=== PATIENT | female | born 1970 | race Caucasian/White ===

== ENCOUNTER 2016-05-12 17:15 | Emergency (ER) | payer OTHER | END 2016-05-12 19:04 | disposition left against medical advice (07) | LOC: ER 17:23 | DX: Z53.21 Procedure and treatment not carried out due to patient leaving prior to being seen by health care provider (principal) ==

== ENCOUNTER 2016-08-16 08:28 | Emergency (ER) | payer OTHER ==
[~2016-08-16] VITALS: Ht 175.3 cm; Wt 65.8 kg
--- NOTE | 2016-08-16 08:38 | NUR ---
PT CAME IN FOR R ARM ABCESS. 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 NOTED ANXIOUS. WILL MONITOR.
[2016-08-16] MEDS ORDERED: SULFAMETH/TRIMETH 800/160 MG 1 UDTAB TABLET PO ONE ×2 (08:49→09:00)
--- NOTE | 2016-08-16 08:54 | NUR ---
PT MEDICATED ORDERED.
[2016-08-16] MEDS ORDERED: LIDOCAINE 1%-EPI 1:100,000 20 ML VIAL TP ONE (09:00)
--- NOTE | 2016-08-16 09:01 | NUR ---
Patient discharged to home in stable condition. Written and verbal after care instructions given. Patient verbalizes understanding of instruction.
[2016-08-16 09:02] VITALS: BP 135/82
== END 2016-08-16 09:52 | disposition home or self-care (01) ==
LOC: EDUNIT# 08:28 → ER 08:32
DX: L02.413 Cutaneous abscess of right upper limb (principal); F19.129 Other psychoactive substance abuse with intoxication, unspecified; F41.9 Anxiety disorder, unspecified; F17.200 Nicotine dependence, unspecified, uncomplicated
CPT/HCPCS: 10061; 99284; A4606; A6402; A6403; A6407; Z7610

== ENCOUNTER 2017-03-30 00:16 | Emergency (ER) | payer OTHER ==
[~2017-03-30] VITALS: Ht 167.6 cm; Wt 54.0 kg
--- NOTE | 2017-03-30 00:38 | NUR ---
BB SELF; PT STATES "I THINK I HAVE PIN WORMS AND GENERALIZED RASH X 1.5 MONTHS" PT AOX3 RR EVEN AND UNLABORED. NO SOB NOTED. NAD NOTED. NO NVD AT THIS TIME. PT GOWNED AND PLACED ON MONITOR WAITING FOR MD GALDAMEZ.
--- NOTE | 2017-03-30 01:01 | NUR ---
DR. OCONNOR AT BEDSIDE FOR EVAL.
[2017-03-30] MEDS ORDERED: TDAP [DIPH/PERTUSSIS/TET] 0.5 ML VIAL IM ONE ×2 (01:13→01:30)
--- NOTE | 2017-03-30 01:21 | NUR ---
LAB AT BEDSIDE FOR BLOOD DRAW
[2017-03-30 01:28] LABS: BASOPHILS % (AUTO) 0.4 % (0.0-2.0); EOSINOPHILS # (AUTO) 0.1 /CMM (0.0-0.7); EOSINOPHILS % (AUTO) 1.8 % (0.0-6.0); HEMATOCRIT 36 % (33-45); HEMOGLOBIN 11.9 g/dL (11.5-14.8); LYMPHOCYTES # (AUTO) 2.2 /CMM (0.8-4.8); LYMPHOCYTES % (AUTO) 28.3 % (20.0-44.0); MEAN CORPUSCULAR HEMOGLOBIN 29 PG (26.0-33.0); MEAN CORPUSCULAR HGB CONC 33 g/dl (31.0-36.0); MEAN CORPUSCULAR VOLUME 87 fL (82-100); MONOCYTES # (AUTO) 0.6 /CMM (0.1-1.30); MONOCYTES % (AUTO) 7.2 % (2.0-12.0); NEUTROPHILS # (AUTO) 4.9 /CMM (1.8-8.9); NEUTROPHILS % (AUTO) 62.3 % (43.0-81.0); PLATELET COUNT (AUTO) 303 /CMM (150-450); RDW COEFFICIENT OF VARIATION 14.8 (11.5-15.0); RED BLOOD CELL COUNT(AUTO) 4.16 MIL/uL (4.0-5.2); WHITE BLOOD COUNT (AUTO) 7.9 K/uL (4.3-11.0)
[2017-03-30 01:45] LABS: CALCIUM, SERUM 8.6 mg/dL (8.5-10.1); CREATININE 0.9 mg/dL (0.6-1.3); POTASSIUM 3.4 mmol/L (3.5-5.1)
[2017-03-30] MEDS ORDERED: POTASSIUM CHLORIDE 20 MEQ TAB.PRT.SR PO ONE ×2 (02:00→02:05)
[2017-03-30] MEDS ORDERED: CEPHALEXIN MONOHYDRATE 500 MG CAPSULE PO ONE ×2 (02:00→02:05)
[2017-03-30] MEDS ORDERED: SULFAMETH/TRIMETH 800/160 MG 1 UDTAB TABLET PO ONE ×2 (02:00→02:12)
--- NOTE | 2017-03-30 02:10 | NUR ---
DR. OCONNOR AT BEDSIDE SPEAKING TO PT REGARDING RESULTS
--- NOTE | 2017-03-30 02:16 | NUR ---
Patient discharged to home in stable condition. Written and verbal after care instructions given. Patient verbalizes understanding of instruction. ambulatory with a steady gait
[2017-03-30 02:17] VITALS: BP 148/87
== END 2017-03-30 02:18 | disposition home or self-care (01) ==
LOC: ER 00:21
DX: L03.114 Cellulitis of left upper limb (principal); L03.113 Cellulitis of right upper limb; F41.9 Anxiety disorder, unspecified; F17.200 Nicotine dependence, unspecified, uncomplicated; Z23 Encounter for immunization
CPT/HCPCS: 36415; 80048; 85025; 90471; 90715; 99284; A4606; Z7610

== ENCOUNTER 2018-08-14 19:38 | Emergency (ER) | payer OTHER ==
[~2018-08-14] VITALS: Ht 160 cm; Wt 59.0 kg
--- NOTE | 2018-08-14 19:43 | NUR ---
pt bbra for drug od, narcan given officer captain; pt aaox3, pt on monitor, vss, nad noted, pending md harris
[2018-08-14 20:24] LABS: BASOPHILS % (AUTO) 0.9 % (0.0-2.0); HEMATOCRIT 38 % (33-45); HEMOGLOBIN 12.9 g/dL (11.5-14.8); LYMPHOCYTES # (AUTO) 2.4 /CMM (0.8-4.8); LYMPHOCYTES % (AUTO) 52.4 % (20.0-44.0); MEAN CORPUSCULAR HGB CONC 34 g/dl (31.0-36.0); MEAN CORPUSCULAR VOLUME 93 fL (82-100); MONOCYTES # (AUTO) 0.3 /CMM (0.1-1.30); MONOCYTES % (AUTO) 6.9 % (2.0-12.0); NEUTROPHILS # (AUTO) 1.7 /CMM (1.8-8.9); NEUTROPHILS % (AUTO) 36.8 % (43.0-81.0); PLATELET COUNT (AUTO) 256 /CMM (150-450); RED BLOOD CELL COUNT(AUTO) 4.14 MIL/uL (4.0-5.2); WHITE BLOOD COUNT (AUTO) 4.6 K/uL (4.3-11.0)
[2018-08-14] MEDS ORDERED: IV NS 0.9% 1,000 ML BAG IV ONE (20:30)
[2018-08-14 20:43] LABS: APPEARANCE,URINE Slightly Cloudy (CLEAR); BILIRUBIN,URINE SMALL (NEGATIVE); BLOOD, URINE Negative Ery/uL (NEGATIVE); KETONES,URINE Negative (NEGATIVE); LEUKOCYTE ESTERASE ,URINE Negative (NEGATIVE); NITRITE, URINE Negative (NEGATIVE); PROTEIN,URINE 100 mg/dl (NEGATIVE); UGLUCOSE Negative (NEGATIVE)
[2018-08-14 20:44] LABS: COLOR,URINE DARK YELLOW (YELLOW)
[2018-08-14 20:46] LABS: CALCIUM, SERUM 8.8 mg/dL (8.5-10.1); CARBON DIOXIDE 24 mmol/L (21-32); CHLORIDE 106 mmol/L (98-107); CREATININE 1.1 mg/dL (0.6-1.3); GLUCOSE 92 mg/dL (74-106); POTASSIUM 4.2 mmol/L (3.5-5.1); SODIUM SERUM 138 mmol/L (136-145); UREA NITROGEN, BLOOD 16 mg/dL (7-18)
[2018-08-14 20:53] LABS: ACETAMINOPHEN < 2 ug/ml (10-30); ALANINE AMINOTRANSFERASE 57 U/L (12-78); ALBUMIN 3.3 g/dL (3.4-5.0); ALCOHOL, BLOOD < 3 mg/dL (0-0); ALKALINE PHOSPHATASE 97 U/L (46-116); ASPARTATE AMINOTRANSFERASE 57 U/L (15-37); BILIRUBIN,TOTAL 0.3 mg/dL (0.2-1.0); SALICYLATE < 2.8 mg/dL (2.8-20.0); TOTAL PROTEIN, SERUM 8.1 g/dL (6.4-8.2)
[2018-08-14 21:12] LABS: BACTERIA,URINE Moderate /HPF (None Seen); RBC,URINE 0-2 /HPF (0-2); SQUAMOUS EPITHELIAL CELL,UR Moderate /HPF (None Seen)
[2018-08-14 21:35] LABS: EOSINOPHILS % (MANUAL) 3 % (0-4); LYMPHOCYTES % (MANUAL) 56 % (16-48); MONOCYTES % (MANUAL) 7 % (0-11.0); NEUTROPHILS % (MANUAL) 34 (42-76)
[2018-08-15 00:14] VITALS: BP 112/74
--- NOTE | 2018-08-15 00:15 | NUR ---
Patient discharged to home in stable condition. Written and verbal after care instructions given. Patient verbalizes understanding of instruction. IV removed. Catheter intact and site benign. Pressure and 4x4 applied to site. No bleeding noted.
== END 2018-08-15 00:16 | disposition home or self-care (01) ==
LOC: ER 19:41
DX: T40.1X1A Poisoning by heroin, accidental (unintentional), initial encounter (principal); I51.7 Cardiomegaly; F41.9 Anxiety disorder, unspecified; F17.200 Nicotine dependence, unspecified, uncomplicated; Z59.0 Homelessness; Y92.89 Other specified places as the place of occurrence of the external cause
CPT/HCPCS: 36415; 80048; 80076; 80305; 80307; 80329; 81001; 84703; 85025; 87077; 87086; 87186; 93005; 99284; G0480; J7030; 81000-TC

== ENCOUNTER 2018-10-15 04:25 | Emergency (ER) | payer OTHER ==
[~2018-10-15] VITALS: Ht 167.6 cm; Wt 56.7 kg
--- NOTE | 2018-10-15 04:50 | NUR ---
BIB SELF FROM HOME WITH FRIEND. AAOX4. BREATHING EVEN AND UNLABORED. AMBULATORY. C/O NAUSEA, VOMITING AND DIARRHEA FOR THE PAST 4 DAYS. PT REPORTS DIARRHEA IS WATTERY. NO VOMITING UPON ARRIVAL BUT NAUSEOUS. DENIES CP. PT IS AFEBRILE. TO ER BED 7. MD AT BEDSIDE FOR EVAL
[2018-10-15] MEDS ORDERED: ONDANSETRON 4 MG TAB.RAPDIS ONE (04:55)
[2018-10-15] MEDS ORDERED: ONDANSETRON 4 MG TAB.RAPDIS SL ONE (05:00)
--- NOTE | 2018-10-15 05:00 | NUR ---
LAB AT BEDSIDE
[2018-10-15 05:13] LABS: BASOPHILS % (AUTO) 0.1 % (0.0-2.0); EOSINOPHILS % (AUTO) 3.1 % (0.0-6.0); HEMATOCRIT 41 % (33-45); HEMOGLOBIN 13.8 g/dL (11.5-14.8); LYMPHOCYTES # (AUTO) 2.2 /CMM (0.8-4.8); LYMPHOCYTES % (AUTO) 46.6 % (20.0-44.0); MEAN CORPUSCULAR HGB CONC 34 g/dl (31.0-36.0); MEAN CORPUSCULAR VOLUME 91 fL (82-100); MONOCYTES # (AUTO) 0.4 /CMM (0.1-1.30); MONOCYTES % (AUTO) 9.4 % (2.0-12.0); NEUTROPHILS % (AUTO) 40.8 % (43.0-81.0); PLATELET COUNT (AUTO) 219 /CMM (150-450); WHITE BLOOD COUNT (AUTO) 4.8 K/uL (4.3-11.0)
--- NOTE | 2018-10-15 05:13 | NUR ---
URINE COLLECTED FROM PT. SENT TO LAB.
[2018-10-15 05:16] LABS: APPEARANCE,URINE Clear (CLEAR); BILIRUBIN,URINE Negative (NEGATIVE); BLOOD, URINE Negative Ery/uL (NEGATIVE); COLOR,URINE Yellow (YELLOW); KETONES,URINE Negative (NEGATIVE); LEUKOCYTE ESTERASE ,URINE Trace (NEGATIVE); NITRITE, URINE Positive (NEGATIVE); PH,URINE 5.5 (5.0-8.0); PROTEIN,URINE Negative (NEGATIVE); UGLUCOSE Negative (NEGATIVE); UROBILINOGEN,URINE 0.2 EU/dL (0.2)
[2018-10-15 05:24] LABS: CALCIUM, SERUM 8.4 mg/dL (8.5-10.1); CREATININE 0.7 mg/dL (0.6-1.3)
[2018-10-15] MEDS ORDERED: HYDROMORPHONE 1 MG/1 ML DISP.SYRIN IV ONE (05:30)
[2018-10-15] MEDS ORDERED: POTASSIUM CHLORIDE 20 MEQ TAB.PRT.SR PO ONE ×2 (05:36→06:00)
[2018-10-15 05:43] LABS: BACTERIA,URINE Many /HPF (None Seen); RBC,URINE 0-2 /HPF (0-2); SQUAMOUS EPITHELIAL CELL,UR Few /HPF (None Seen)
--- NOTE | 2018-10-15 05:51 | NUR ---
Patient discharged to home in stable condition. Written and verbal after care instructions given. Patient verbalizes understanding of instruction.Pt ambulatory with a steady gait
[2018-10-15 05:52] VITALS: BP 126/77
== END 2018-10-15 05:53 | disposition home or self-care (01) ==
LOC: ER 04:30
DX: E87.6 Hypokalemia (principal); R11.2 Nausea with vomiting, unspecified; R19.7 Diarrhea, unspecified; F11.20 Opioid dependence, uncomplicated; F41.9 Anxiety disorder, unspecified; Z60.2 Problems related to living alone
CPT/HCPCS: 36415; 80048; 80305; 81001; 84703; 85025; 87077; 87086; 87186; 99283; Q0162; 81000-TC

== ENCOUNTER 2019-11-25 07:18 | Emergency (ER) | payer MEDICAID, OTHER ==
[~2019-11-25] VITALS: Ht 167.6 cm; Wt 54.4 kg
[2019-11-25 07:47] LABS: BASOPHILS % (AUTO) 0.6 % (0.0-2.0); EOSINOPHILS % (AUTO) 2.5 % (0.0-6.0); HEMATOCRIT 41 % (33-45); HEMOGLOBIN 13.3 g/dL (11.5-14.8); LYMPHOCYTES # (AUTO) 2.4 /CMM (0.8-4.8); LYMPHOCYTES % (AUTO) 39.5 % (20.0-44.0); MEAN CORPUSCULAR HGB CONC 33 g/dl (31.0-36.0); MEAN CORPUSCULAR VOLUME 91 fL (82-100); MONOCYTES # (AUTO) 0.3 /CMM (0.1-1.30); MONOCYTES % (AUTO) 5.6 % (2.0-12.0); NEUTROPHILS # (AUTO) 3.1 /CMM (1.8-8.9); NEUTROPHILS % (AUTO) 51.8 % (43.0-81.0); PLATELET COUNT (AUTO) 254 /CMM (150-450); RED BLOOD CELL COUNT(AUTO) 4.43 MIL/uL (4.0-5.2)
--- NOTE | 2019-11-25 07:51 | NUR ---
Patient BIB EMS found in the street lethargic pos. OD no family @ this time moved to room 10 place in the monitor ,tianna ,shelby neff .ekg ,side rails up x2 for safety
[2019-11-25 07:53] LABS: CALCIUM, SERUM 8.8 mg/dL (8.5-10.1); CARBON DIOXIDE 21 mmol/L (21-32); CHLORIDE 100 mmol/L (98-107); GLUCOSE 96 mg/dL (74-106); POTASSIUM 3.7 mmol/L (3.5-5.1); SODIUM SERUM 135 mmol/L (136-145); UREA NITROGEN, BLOOD 16 mg/dL (7-18)
--- NOTE | 2019-11-25 07:54 | NUR ---
Carissa Lala (sister) [phone]
--- NOTE | 2019-11-25 07:58 | NUR ---
Placed graham cath 18 F observed sterile technique urine obtained and send to lab asssisted by Ana ANGUIANO
[2019-11-25 07:59] LABS: ALANINE AMINOTRANSFERASE 40 U/L (12-78); ALBUMIN 3.4 g/dL (3.4-5.0); ALCOHOL, BLOOD < 3 mg/dL (0-0); ALKALINE PHOSPHATASE 93 U/L (46-116); ASPARTATE AMINOTRANSFERASE 45 U/L (15-37); BILIRUBIN,DIRECT 0.1 mg/dL (0.0-0.2); BILIRUBIN,TOTAL 0.2 mg/dL (0.2-1.0); SALICYLATE 3.1 mg/dL (2.8-20.0); TOTAL PROTEIN, SERUM 8.8 g/dL (6.4-8.2)
[2019-11-25 08:00] LABS: SERUM AMMONIA 9 umol/L (11-32)
[2019-11-25 08:02] LABS: ACETAMINOPHEN < 2 ug/ml (10-30)
--- NOTE | 2019-11-25 08:12 | NUR ---
Patient friend /family [phone] Gab Goodrich
[2019-11-25 08:22] LABS: APPEARANCE,URINE Slightly Cloudy (CLEAR); BILIRUBIN,URINE Negative (NEGATIVE); BLOOD, URINE Negative Ery/uL (NEGATIVE); COLOR,URINE Dark (YELLOW); KETONES,URINE Negative (NEGATIVE); LEUKOCYTE ESTERASE ,URINE Negative (NEGATIVE); NITRITE, URINE Positive (NEGATIVE); PH,URINE 5.5 (5.0-8.0); PROTEIN,URINE 30 mg/dl (NEGATIVE); UGLUCOSE Negative (NEGATIVE); UROBILINOGEN,URINE 0.2 EU/dL (0.2)
[2019-11-25 08:24] LABS: RBC,URINE 0-2 /HPF (0-2)
[2019-11-25 08:25] LABS: BACTERIA,URINE 3+ /HPF (None Seen); SQUAMOUS EPITHELIAL CELL,UR Few /HPF (None Seen)
[2019-11-25 08:31] LABS: THYROID STIMULATING HORMONE 2.771 uIU/mL (0.358-3.74)
[2019-11-25] MEDS ORDERED: CEFTRIAXONE 1 G VIAL ONE (08:58)
[2019-11-25] MEDS ORDERED: CEFTRIAXONE 1GM BAG (ER ONLY) 1 GM/50 ML PIGGYBACK IV ONE (09:00)
--- NOTE | 2019-11-25 12:00 | NUR ---
called sister for picker box operator
--- NOTE | 2019-11-25 12:12 | NUR ---
SISTER CALLED, ETA 30
[2019-11-25 12:14] VITALS: BP 127/56
--- NOTE | 2019-11-25 12:15 | NUR ---
Patient sleepy but arousable noted able to ambulated slow to rest room keep patient clean and dry removed Left EJ helplok cath intact no edema no pain Enio Redyd called her sister for DC home shredder picker
--- NOTE | 2019-11-25 12:49 | NUR ---
Patient awake alert to name and orreinted noted sleepy but able to response slow snacks given 90 % of snack consumed no nause and vomit patient agrees to see PMD in 2 days her friend Kem Duarte is here to pick her up .Given Dc home instruction to friend agrees to follow up and to patient sister
== END 2019-11-25 12:52 | disposition home or self-care (01) ==
LOC: EDSEX 07:18 → ER 07:22 → MERGE 07:22 → EDBD 07:22 → ER 12:52
DX: F19.10 Other psychoactive substance abuse, uncomplicated (principal); R94.31 Abnormal electrocardiogram [ECG] [EKG]; Z59.0 Homelessness
CPT/HCPCS: 36415; 51702; 70450; 71045; 80048; 80076; 80305; 80307; 80329; 81001; 82140; 82962; 84443; 84484; 84703; 85025; 85730; 87086; 93005; 96365; 99285; A4216; G0480; J0696; 81000-TC; 87186-TC

== ENCOUNTER 2022-08-28 06:58 | Emergency (ER) | payer OTHER ==
[~2022-08-28] VITALS: Ht 167.6 cm; Wt 59.0 kg
--- NOTE | 2022-08-28 07:00 | NUR ---
RECEIVED PT 51 YRS FEMALE CAME FROM HOME C/O HX SZ AND ACCTIVE SZ NO BITING HERE NO TRMA
[2022-08-28] MEDS ORDERED: NITR100C6 PO (07:44)
--- NOTE | 2022-08-28 07:45 | NUR ---
NO ACTIVE SZ
--- NOTE | 2022-08-28 07:55 | NUR ---
Patient discharged to home in stable condition. Written and verbal after care instructions given. Patient verbalizes understanding of instruction.
[2022-08-28 07:59] VITALS: BP 133/87
== END 2022-08-28 08:00 | disposition home or self-care (01) ==
LOC: ER 07:05
DX: R56.9 Unspecified convulsions (principal); F41.9 Anxiety disorder, unspecified; F17.200 Nicotine dependence, unspecified, uncomplicated; Z60.2 Problems related to living alone

== ENCOUNTER 2024-04-20 17:27 | Emergency (ER) | payer OTHER ==
[~2024-04-20] VITALS: Ht 167.6 cm; Wt 72.6 kg
[~2024-04-20 17:27] MED LIST: LEVE500T9 PO; NITR100C6 PO
[2024-04-20] MEDS: IV NS 0.9% 1,000 ML BAG IV ONE (18:30)
[2024-04-20 18:31] LABS: BASOPHILS % (AUTO) 0.2 % (0.0-2.0); EOSINOPHILS # (AUTO) 0.1 K/uL (0.0-0.7); EOSINOPHILS % (AUTO) 0.6 % (0.0-6.0); HEMATOCRIT 35 % (33-45); HEMOGLOBIN 12.1 g/dL (11.5-14.8); LYMPHOCYTES # (AUTO) 1.3 K/uL (0.8-4.8); LYMPHOCYTES % (AUTO) 13.3 % (20.0-44.0); MEAN CORPUSCULAR HEMOGLOBIN 31 PG (26.0-33.0); MEAN CORPUSCULAR HGB CONC 35 g/dl (31.0-36.0); MEAN CORPUSCULAR VOLUME 89 fL (82-100); MONOCYTES # (AUTO) 0.8 K/uL (0.1-1.30); MONOCYTES % (AUTO) 8.5 % (2.0-12.0); NEUTROPHILS # (AUTO) 7.7 K/uL (1.8-8.9); NEUTROPHILS % (AUTO) 77.4 % (43.0-81.0); PLATELET COUNT (AUTO) 402 K/uL (150-450); RED BLOOD CELL COUNT(AUTO) 3.96 MIL/uL (4.0-5.2); RED CELL DISTRIBUTION WIDTH 12.3 % (11.5-15.0)
[2024-04-20 18:46] LABS: ALANINE AMINOTRANSFERASE 31 U/L (12-78); ALBUMIN 2.9 g/dL (3.4-5.0); ALCOHOL, BLOOD < 3 mg/dL (0-10); ALKALINE PHOSPHATASE 148 U/L (46-116); ASPARTATE AMINOTRANSFERASE 29 U/L (15-37); BILIRUBIN,DIRECT 0.1 mg/dL (0.0-0.2); BILIRUBIN,TOTAL 0.2 mg/dL (0.2-1.0); CALCIUM, SERUM 8.8 mg/dL (8.5-10.1); CARBON DIOXIDE 29 mmol/L (21-32); CHLORIDE 98 mmol/L (98-107); GLUCOSE 109 mg/dL (74-106); POTASSIUM 4.7 mmol/L (3.5-5.1); SODIUM SERUM 132 mmol/L (136-145); TOTAL PROTEIN, SERUM 8.5 g/dL (6.4-8.2); UREA NITROGEN, BLOOD 9 mg/dL (7-18)
[2024-04-20 19:00] VITALS: TEMP 98.2
[2024-04-20 19:54] LABS: PREGNANCY TEST URINE QUAL NEGATIVE (NEGATIVE)
[2024-04-20] MEDS ORDERED: CEFEPIME 1 GM VIAL ONE (20:01)
[2024-04-20] MEDS ORDERED: VANCOMYCIN 1 GM /D5W 250 ML PB IV ONE (20:01)
[2024-04-20 20:06] LABS: AMPHETAMINE, URINE POSITIVE (NEGATIVE); BARBITURATE, URINE NEGATIVE (NEGATIVE); CANNABINOID, URINE NEGATIVE (NEGATIVE); COCCAINE, URINE NEGATIVE (NEGATIVE); PHENCYCLIDINE SCREEN,URINE NEGATIVE (NEGATIVE)
[2024-04-20] MEDS: CEFEPIME 1 GM in IV D5W 50 ML IV ONE (20:06)
[2024-04-20 20:18] LABS: BENZODIAZEPINE, URINE POSITIVE (NEGATIVE); OPIATE, URINE POSITIVE (NEGATIVE)
[2024-04-20] MEDS: VANCOMYCIN 1 GM in IV D5W 250 ML IV ONE (20:20)
[2024-04-20] MEDS ORDERED: DOXY100C2 PO (21:11)
[2024-04-20] MEDS ORDERED: AMOX-430 PO (21:11)
[2024-04-20 21:22] VITALS: BP 121/83; O2SAT 99
== END 2024-04-20 21:23 | disposition left against medical advice (07) ==
LOC: ER 17:35
DX: G40.909 Epilepsy, unspecified, not intractable, without status epilepticus (principal); R00.0 Tachycardia, unspecified; F11.10 Opioid abuse, uncomplicated; F17.200 Nicotine dependence, unspecified, uncomplicated; J18.9 Pneumonia, unspecified organism; F41.9 Anxiety disorder, unspecified; Z60.2 Problems related to living alone
CPT/HCPCS: 99285; 96365; 96361; 96368; 71045; 70450; 85025; 80048; 80076; 84703; 36415; 80320; 80307; J3370 ×2; J7060 ×2; J7030; J0692 ×2; G0480

== ENCOUNTER 2024-12-18 03:43 | Emergency (ER) | payer OTHER ==
[~2024-12-18] VITALS: Ht 165.1 cm; Wt 63.5 kg
[~2024-12-18 03:43] MED LIST changes: +AMOX-430 PO; +DOXY100C2 PO
[2024-12-18 04:05] VITALS: BP 138/84; TEMP 98.1
[2024-12-18] MEDS ORDERED: LEVE500T9 PO (04:30)
[2024-12-18] MEDS ORDERED: FEXO180T94 PO (04:30)
[2024-12-18 04:38] VITALS: O2SAT 98
== END 2024-12-18 04:39 | disposition home or self-care (01) ==
LOC: ER 03:47
DX: G40.909 Epilepsy, unspecified, not intractable, without status epilepticus (principal); L23.9 Allergic contact dermatitis, unspecified cause; F17.200 Nicotine dependence, unspecified, uncomplicated; F41.9 Anxiety disorder, unspecified; Z79.899 Other long term (current) drug therapy